=== PATIENT | female | born 1970 | race Caucasian/White ===

== ENCOUNTER → 2018-09-03 14:47 | Outpatient (CLI) | payer OTHER, SELFPAY ==
--- NOTE | 2018-09-03 | DI.MG.S_ITS ---
BILATERAL DIGITAL SCREENING MAMMOGRAM 3D/2D WITH CAD: 09/03/2018 CLINICAL: Routine screening. Family history of breast cancer. Comparison is made to exams dated: 08/23/2017 mammogram, 08/13/2016 mammogram, and 08/12/2015 mammogram - [facility]. There are scattered fibroglandular elements in both breasts. Current study was also evaluated with a Computer Aided Detection (CAD) system. No significant masses, calcifications, or other findings are seen in either breast. There has been no significant interval change. IMPRESSION: NEGATIVE There is no mammographic evidence of malignancy. A 1 year screening mammogram is recommended. This exam was interpreted at Station ID: [id number]. NOTE: For mammograms, a report in lay terms will be sent to the patient. Approximately 15% of breast malignancies will not be visualized mammographically. In the management of a palpable breast mass, a negative mammogram must not discourage biopsy of a clinically suspicious lesion. Electronically Signed By: Lauren betancourt/suyapa:09/03/2018 19:24:19 letter sent: Normal Exam ACR BI-RADS Category 1: Negative 3341F
== END ==
PROVIDERS: PCP Family Medicine; Visit Provider Family Medicine
DX: Z12.31 Encounter for screening mammogram for malignant neoplasm of breast (principal); Z80.3 Family history of malignant neoplasm of breast
CPT/HCPCS: 77063; 77067

== ENCOUNTER → 2019-09-07 07:38 | Outpatient (CLI) | payer OTHER, SELFPAY ==
--- NOTE | 2019-09-07 | DI.MG.S_ITS ---
BILATERAL DIGITAL SCREENING MAMMOGRAM 3D/2D WITH CAD: 09/07/2019 CLINICAL: Routine screening. Family history of breast cancer. Comparison is made to exams dated: 09/03/2018 mammogram, 08/23/2017 mammogram, and 08/13/2016 mammogram - [facility]. There are scattered fibroglandular elements in both breasts. Current study was also evaluated with a Computer Aided Detection (CAD) system. No significant masses, calcifications, or other findings are seen in either breast. There has been no significant interval change. IMPRESSION: NEGATIVE There is no mammographic evidence of malignancy. A 1 year screening mammogram is recommended. This exam was interpreted at Station ID: [id number]. NOTE: For mammograms, a report in lay terms will be sent to the patient. Approximately 15% of breast malignancies will not be visualized mammographically. In the management of a palpable breast mass, a negative mammogram must not discourage biopsy of a clinically suspicious lesion. Electronically Signed By: Lauren betancourt/suyapa:09/07/2019 21:47:01 letter sent: Normal Exam ACR BI-RADS Category 1: Negative 3341F
== END ==
PROVIDERS: PCP Family Medicine; Referring Provider Family Medicine; Visit Provider Family Medicine
DX: Z12.31 Encounter for screening mammogram for malignant neoplasm of breast (principal); Z80.3 Family history of malignant neoplasm of breast
CPT/HCPCS: 77063; 77067

== ENCOUNTER → 2019-12-24 09:53 | Outpatient (CLI) | payer OTHER, SELFPAY ==
--- NOTE | 2019-12-24 09:55 | DI.US.S_ITS ---
PROCEDURE: US PELVIC COMPLETE INDICATIONS: MENORRHAGIA TECHNIQUE: Real-time scanning was performed of the pelvic organs, with image documentation. Additional endovaginal scanning was necessary due to incomplete visualization of the adnexal and endometrial structures by transabdominal scanning. COMPARISON: None. FINDINGS: Transabdominal scanning: Limited scanning through the kidneys shows no hydronephrosis. No pathologic free abdominal or pelvic fluid. Left upper pole cyst measuring 2.5 cm. Endovaginal scanning: Uterus: Uterus is normal in size at 10.7 x 5.3 x 6.2 cm. The endometrium measures 16 mm in combined thickness. Ovaries: Right ovary measures 4.0 x 2 point 2 x 2 0.4 cm. There is physiologic follicular change in the presumed hemorrhagic cyst measuring 1.5 x 1.3 x 1.3 cm. If clinically desired, this could be followup in 6 weeks to document resolution Left ovary surgically absent IMPRESSION: Presumed right ovarian hemorrhagic cyst Left renal cyst Dictated by: Cuco Dupont M.D. on 12/24/2019 at 13:26 Approved by: Cuco Dupont M.D. on 12/24/2019 at 13:31
== END ==
PROVIDERS: PCP Family Medicine; Referring Provider Obstetrics & Gynecology; Visit Provider Obstetrics & Gynecology
DX: N92.0 Excessive and frequent menstruation with regular cycle (principal); N28.1 Cyst of kidney, acquired; Z90.721 Acquired absence of ovaries, unilateral
CPT/HCPCS: 76830; 76856

== ENCOUNTER → 2020-04-08 09:21 | Outpatient (CLI) | payer OTHER, SELFPAY ==
[2020-04-10 18:28] LABS: COVID19 Sendout Not Detected (Not Detect)
== END ==
PROVIDERS: PCP Family Medicine; Visit Provider Nurse Practitioner
DX: Z11.59 Encounter for screening for other viral diseases (principal)
CPT/HCPCS: 87635

== ENCOUNTER 2020-04-11 08:39 | Inpatient (IN) | payer OTHER, SELFPAY ==
[2020-04-07 08:47] VITALS: BMI 40.3
[2020-04-11] VITALS (14 sets, daily range): BP systolic 136–192; BP diastolic 66–103; PULSE 48–83; RESP 12–25; TEMP 36.1–36.9; O2SAT 95–99; BMI 40.3; BMI 38.7
--- NOTE | 2020-04-11 | PATH_ITS ---
[facility] Accession Number: [id number] . 01 Material submitted: . UTERUS/TUBE/OVARY - UTERUS AND RIGHT TUBE AND RIGHT OVARY . 02 Diagnosis: Uterus With Right Fallopian Tube and Ovary, Supracervical Hysterectomy and Right Salpingo-oophorectomy: Proliferative endometrium with no diagnostic abnormality. Myometrium with no diagnostic abnormality. Right ovary with benign hemorrhagic corpus luteum cyst. Right fallopian tube with simple benign paratubal cysts and gross evidence of prior tubal ligation. No evidence of neoplasm. [facility] 04/13/2020 1048 Local . 02 Electronically signed: . Caesar Vogt MD, PhD, Pathologist NPI- [id number] . 01 Gross description: . Received in formalin, labeled uterus and right ovary and right fallopian tube, and consists of a 121-gram supracervically resected uterus with right ovary and fallopian tube. The specimen measures 8.0 cm from superior fundus to lower uterine segment by 6.0 cm from cornu to cornu by 5.5 cm from anterior to posterior. The serosa is cooley-pink and smooth. The specimen is bivalved to reveal a cooley-pink herringbone endocervical mucosa. The triangular endometrial cavity measures 4.0 x 2.8 cm and displays a cooley-pink glistening hemorrhagic endometrium measuring 0.1 cm in thickness. The myometrium is cooley-pink and trabeculated measuring 1.7 cm in thickness. The right ovary measures 4.0 x 2.0 x 2.0 cm and displays a cooley-pink cerebriform external surface. Sectioning reveals a 0.7 x 0.6 x 0.6 cm serous filled smooth walled cyst. The fallopian tube measures 6.5 cm in length by 0.7 cm in diameter. The serosa is pink-purple and smooth with a 0.5 x 0.5 x 0.5 cm paratubal cyst. There is evidence of previous ligation. Sectioning reveals a cooley mucosa and a lumen measuring 0.3 cm in diameter. Geek Squad Manager sections are submitted. . A1: anterior lower uterine segment. A2: posterior lower uterine segment. A3: anterior uterus, full-thickness sections. A4: posterior uterus, full-thickness sections. A5-A6: client care representative right ovary and cyst. A7-A9: client care representative fallopian tube, paratubal cyst and bisected fimbria. ([id number]) /MRV 04/12/2020 1308 Local . 02 Pathologist provided ICD-10: N92.0, N83.9, N83.10 . 02 CPT . 642115 Performed at: 01 [facility] [address] [id number] MD Ernesto Keys MD Phone: [phone] Performed at: 02 [facility] [id number] [place] [id number] MD Diandra Esparza MD Phone: [phone]
[2020-04-11] MEDS: LACTATED RINGERS 1,000 ML 100 ML IV ×4 (09:03→22:16)
[2020-04-11] MEDS: ACETAMINOPHEN 325 MG TABLET 975 MG PO (09:03)
--- NOTE | 2020-04-11 09:38 | PM.PREOP ---
Pre-operative Note COVID-19 COVID-19 status: Negative Result date/Date tested (Pos, Neg/Pending): 04/08/20 Interval Note History & Physical reviewed/Exam performed by Physician: Yes Changes to H&P: No H&P completed within 30 days and has changed as indicated here:: 03/29/20
[2020-04-11] MEDS: CEFAZOLIN 2 GM/100 ML FROZ.PIGGY IV (09:50)
--- NOTE | 2020-04-11 10:27 | SUR.OPER ---
Lithotomy on padded OR bed. [place] Pad Positioner under torso. Head on pillow, arms padded and tucked at sides. Legs secured in padded yellow fins stirrups.
[2020-04-11] MEDS: BUPIVACAINE 0.5% W/ EPI (PF) 30 ML VIAL INJ (11:24)
--- NOTE | 2020-04-11 12:17 | P.OP_ITS ---
Operative Date/Time/Diagnoses Date of procedure: 04/11/20 Time of procedure: 12:17 Post-op diagnosis: same Procedure & Clinicians Procedure: Procedures Operation Date: 04/11/20 09:45 Actual Procedures Side Surgeon p Diagnostic Laparoscopy converted to open Supracervical Hysterectomy with Right Salpingo-oophorectomy Natalie Park MD Indications: Menorrhagia Anemia Surgeon: Natalie Park Grease Machine Worker: Josephine Resendiz Anesthesia Type: General Operative Notes Findings: Twelve week size uterus Left tube and ovary previously removed Normal right tube Right ovary with small cysts Bladder to uterine adhesions Closure Type: primary Specimen(s): right tube & ovary and uterus Applied: catheter Estimated blood loss (mL): 100 Blood products transfused: none Procedure in detail: The patient was taken to the operating room where she was placed in the dorsal supine position. After adequate general endotracheal anesthesia was achieved, she was placed in the dorsal lithotomy position, and prepped and draped in the usual sterile fashion. A time-out was performed. A bivalve speculum was placed into the Vagina and the anterior lip of the cervix grasped with a single-tooth tenaculum. The cervical os was sequentially dilated until the Zumi uterine manipulator could pass easily into the endometrial cavity. The single-tooth tenaculum was removed from the anterior lip of the cervix. The bivalve speculum was removed from the vagina. Attention was then turned to the abdomen where 6 cc of 0.5% Marcaine with epinephrine were injected in the umbilical fold. A 5 mm incision was made. An attempt was made to place the Veress needle into the peritoneal cavity but was unsuccessful. The incision was extended and the fascia was grasped and entered sharply. The incision was extended bilaterally with the Wei scissors. The Everett trocar was placed into the peritoneal cavity and insufflation with 3.8 L CO2 was performed. Inspection with the camera revealed a large uterus and the visualization into the pelvis was not good. A decision was made to proceed with an open procedure. The instruments were removed from the abdomen. The CO2 was allowed to escape. A Pfannenstiel skin incision was made 2 finger breaths above the pubic symphysis and carried through to the underlying layer of fascia. The fascia was nicked in the midline and the incision extended bilaterally with the Wei scissors. The superior aspect of the fascial incision was grasped with the Nayeli clamps, elevated, and underlying rectus muscles dissected off sharply and bluntly. Attention was then turned to the inferior aspect of this incision which in a similar fashion was grasped, elevated, and the rectus muscles were dissected off sharply and bluntly. The rectus muscles were in the midline, the peritoneum was identified, grasped between 2 hemostats, and entered sharply with the Metzenbaum scissors. This incision was extended superiorly and inferiorly with good visualization of the bladder. The large Abraham retractor was placed into the incision. The bowel was packed away with moist lap sponges. The uterus was grasped with a 4 tooth tenaculum. The round ligament on the right side was grasped between 2 Josephine clamps, incised, and suture ligated with 0 Vicryl and tagged with a hemostat. This was repeated on the patient's left side. On the right side the peritoneum was entered sharply with the Metzenbaum scissors both anteriorly and posteriorly. The infundibulopelvic ligament on the right side was grasped between 2 Nayeli clamps, incised, free tied with 0 Vicryl, and then suture ligated with 0 Vicryl. Hemostasis was achieved. The uterine arteries were skeletonized bilaterally the bladder flap was created sharply with the Metzenbaum scissors from both sides, and the bladder flap was taken down off of the lower uterine segment and cervix. The uterine arteries were clamped, transected, and suture ligated with 0 Vicryl bilaterally. The Zumi uterine manipulator was removed from the uterus. A sponge stick was placed into the vagina. The uterus was amputated from the cervix using the cautery, and handed off for specimen. The endocervical canal was cauterized with the Bovie. The cervix was closed with simple interrupted sutures using 0 Vicryl. Hemostasis was achieved. The pelvis was copiously irrigated with warm normal saline. There was no bleeding noted. The Abraham and lap sponges were removed from the abdomen. The peritoneum was closed using 2 0 Vicryl in a running fashion. The fascia was closed using 0 Vicryl in a running fashion. The subcutaneous layer was copiously irrigated with warm normal saline. Two layers of 3 0 Vicryl sutures were placed to reapproximate the subcutaneous layer. The skin was closed with 4 0 Biosyn in a subcuticular fashion. Steri-Strips and an Aquacel dressing were placed. The umbilical incision was closed on the fascia with 0 Vicryl. The skin was closed with 4 0 Biosyn in a subcuticular fashion. Steri-Strips, 2 x 2, and op site were placed. The moistened sponge stick was removed from the vagina. Sponge, lap, and instrument counts were correct x2. The patient tolerated the procedure well, and was taken to PACU in stable con dition. Complications: none Post-operative Condition: stable Disposition: PACU Plan for aftercare: To Acute Care after Recovery
--- NOTE | 2020-04-11 12:19 | PC.NURSE ---
Day shift: Pt not on AC unit at this time (1220).
--- NOTE | 2020-04-11 12:48 | SUR.PHASEI ---
transferred patient to room 213 in stable condition.
--- NOTE | 2020-04-11 12:48 | PC.NURSE ---
Day shift: Pt on unit from PACU at approx 1248. Oriented to room and call light. BP elevated 167/103. Will continue to monitor. Pt stated that her BP at home is usually 130/85 juice. Estrada patent. Aqucel ove lower ABD is dry and intact with a very small amount of shadow drainage in the middle (approx size of 1/8 of a yossi). SCD's tolerated. Pt is A&Ox3. She stated she is tired.
--- NOTE | 2020-04-11 13:06 | PC.NURSE ---
Day shift: Dr Park contacted by phone in regards to elevated BP. Order placed for consult to hospitalist. Dr Madrid notified. Per Dr Park Pt's PCP deluna not have privileges at [facility].
[2020-04-11] MEDS: HYDROMORPHONE 1 MG INJ IV (13:26)
[2020-04-11] MEDS: ONDANSETRON 4 MG/2 ML INJ IV (14:06)
[2020-04-11 14:19] LABS: Add Manual Diff / Slide Review NO; Basophils Absolute Auto 0 /uL (0-100); Basophils Percent Auto 0.2 % (0-2); Eosinophils Absolute Auto 0 /uL (0-450); Hematocrit 37.7 % (36-46); Hemoglobin 12.6 g/dL (12.0-16.0); Lymphocytes Absolute Auto 600 /uL (1100-4500); Lymphocytes Percent Auto 3.7 % (25-40); Mean Corpuscular HGB Conc 33.5 % (30-36); Mean Corpuscular Hemoglobin 31.8 PG (26-34); Mean Corpuscular Volume 94.9 fL (80-100); Monocytes Absolute Auto 400 /uL (0-900); Monocytes Percent Auto 2.7 % (3-14); Neutrophils Absolute Auto 14600 /uL (1500-7000); Neutrophils Percent Auto 93.4 % (50-75); Platelet Count 287 X10^3/uL (150-400); Red Blood Cell Count 3.97 X10^6/uL (4.0-5.2); Red Cell Distribution Width 12.6 % (11.6-14.8); White Blood Cell Count 15.6 X10^3/uL (4.5-11.0)
[2020-04-11 14:30] LABS: BUN Creatinine Ratio 14.3 (6-22); Blood Urea Nitrogen 9 mg/dL (7-17); Calcium 8.5 mg/dL (8.4-10.2); Carbon Dioxide 23 mmol/L (22-32); Chloride 106 mmol/L (98-107); Estimated Glomerular Filt Rate > 60.0 mL/min (>60); Glucose 176 mg/dL (70-100); HEMOLYSIS < 15 (0-50); Potassium 4.3 mmol/L (3.4-5.1); Sodium 137 mmol/L (137-145)
--- NOTE | 2020-04-11 15:34 | PM.CN ---
History of Present Illness Consult details Date Patient Seen: 04/11/20 Chief complaint: OPB Reason for consult: Hypertension Requesting provider: Natalie Park Narrative: The patient is a 49-year-old female who is status post laparoscopic hysterectomy and oophorectomy. I was asked to see the patient in consultation for treatment of hypertension. Patient reports history of stroke. She apparently was hypertensive at the time of her stroke. She notes that her blood pressure somewhat elevated at home. She was to start hydrochlorothiazide for her blood pressure. But she admits not taking the hydrochlorothiazide. In addition to hypertension the patient hypothyroidism. I discussed with her the need for treatment of her blood pressure is she has been hypertensive throughout her hospital stay. She denies any shortness of breath or chest pain. She has no headache or blurred vision. She does report some nausea postoperatively. She has occasional lower extremity edema. She reports her residual deficit from her stroke was difficulty with fine motor control of her left hand. Patient was markedly hypertensive postoperatively. It has improved somewhat. Patient is agreeable to taking lisinopril which we discussed during the consultation. Meds Home Medications and Allergies Home Medications Medication Instructions Recorded Confirmed Type multivitamin 1 cap PO DAILY #0 08/07/12 04/07/20 History aspirin 81 mg tablet,delayed 81 mg PO DAILY 12/31/19 04/11/20 History release levothyroxine 100 mcg capsule 100 mcg PO DAILY #30 cap 03/03/20 04/11/20 Rx Allergies Allergy/AdvReac Type Severity Reaction Status Date / Time amoxicillin [AMOXICILLIN] Allergy Mild RASH Verified 04/11/20 08:50 Penicillins [PENICILLINS] Allergy Mild RASH Verified 04/11/20 08:50 Review of Systems Review of Systems ROS: Yes All systems reviewed with the patient and are negative except as otherwise documented Exam Vital Signs (past 8 hours): - 04/11/20 08:54 04/11/20 12:08 04/11/20 12:14 Temperature 97.8 F 98.2 F Pulse Rate 83 72 72 Respiratory Rate 18 16 13 Blood Pressure 192/82 H 146/88 H 154/87 H Pulse Oximetry 98 96 96 04/11/20 12:19 04/11/20 12:24 04/11/20 12:34 Temperature Pulse Rate 74 72 68 Respiratory Rate 25 H 16 12 Blood Pressure 155/95 H 166/92 H 170/94 H Pulse Oximetry 96 97 95 04/11/20 12:50 04/11/20 13:20 04/11/20 13:50 Temperature 96.9 F L 96.9 F L 97.0 F L Pulse Rate 60 60 60 Respiratory Rate 14 16 16 Blood Pressure 167/103 H 167/80 H 160/89 H Pulse Oximetry 96 96 96 04/11/20 14:50 04/11/20 15:05 Temperature 97.0 F L 97.0 F L Pulse Rate 65 56 L Respiratory Rate 16 16 Blood Pressure 141/74 H 146/83 H Pulse Oximetry 98 97 Oxygen Delivery Method Room Air Oxygen Flow Rate 0 Narrative Exam Narrative: Pleasant female lying in bed in no obvious distress HEENT: Normocephalic atraumatic, extraocular muscles are intact, oropharynx is clear, with moist mucous members, neck is supple without adenopathy Lungs: Clear to auscultation Cardiac exam regular rate and rhythm normal S1-S2 Abdomen: Soft nontender nondistended, patient with dressings in place, ice pack on her abdomen, she is hypoactive bowel tones, mildly tender to palpation Extremities: Trace edema Neuro exam: She has somewhat slow speech. Minimal weakness in the left upper extremity. Otherwise nonfocal exam Objective Labs Result Diagrams: 04/11/20 14:13 04/11/20 14:13 Labs: Laboratory Results - last 24 hr 04/11/20 04/11/20 14:13 14:13 WBC 15.6 H RBC 3.97 L Hgb 12.6 Hct 37.7 MCV 94.9 MCH 31.8 MCHC 33.5 RDW 12.6 Plt Count 287 Neut % (Auto) 93.4 H Lymph % (Auto) 3.7 L [place] % (Auto) 2.7 L Eos % (Auto) 0.0 L Baso % (Auto) 0.2 Neut # (Auto) 93893 H Lymph # (Auto) 600 L [place] # (Auto) 400 Eos # (Auto) 0 Baso # (Auto) 0 Sodium 137 Potassium 4.3 Chloride 106 Carbon Dioxide 23 BUN 9 Creatinine 0.63 Estimated GFR > 60.0 BUN/Creatinine Ratio 14.3 Glucose 176 H Calcium 8.5 Assessment & Plan Assessment & Plan narrative: 1. 49-year-old female status post hysterectomy and oophorectomy I am asked to evaluate for hypertension -patient has long history of hypertension -she has had a significant complication including prior stroke -she has been hypertensive throughout her hospital stay and likely has hypertension at home -will start the patient on lisinopril 10 mg per day. Will observe blood pressure over the next 2 days. May need to titrate this with a goal blood pressure of 120/80 2. 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 The hypothyroidism -continue thyroid medication 4. Status post hysterectomy -postop care per Dr. Park Thank you very much for this consultation
[2020-04-11] MEDS: METOCLOPRAMIDE 10 MG/2 ML INJ IV (15:36)
[2020-04-11] MEDS: KETOROLAC 30 MG/ML VIAL IV ×2 (15:47→22:13)
[2020-04-11] MEDS: lisinopriL 10 MG TABLET PO (16:32)
[2020-04-11] MEDS: SCOPOLAMINE 1 PATCH TOP (18:21)
[2020-04-11] MEDS: OXYCODONE/ACETAMINOPHEN 5/325 TABLET 1 TAB PO (19:35)
[2020-04-11] MEDS: DOCUSATE 250 MG CAPSULE PO (19:35)
--- NOTE | 2020-04-11 21:41 | PC.NURSE ---
Evening Shift Note- Patient alert and oriented and able to make needs known to staff. Patient pleasent, calm, and cooperative with care. PRN IV reglan given to c/o nausea. Patient reports no changes. Recieved new order from Dr. Park for a scopalamine patch. Patient reports positive results after patch applied. PRN percocet and scheduled toradol provided for pain. Dressing to lower abdominal surgical site c/d/i. Safety measures in place. Bed alarm activated. Patient agrees to call for assistance. Call raygoza and phone within reach. Will continue to monitor.
--- NOTE | 2020-04-11 23:37 | PC.NURSE ---
Addendum entered by Charlotte Sims R.N. 04/12/20 06:10: Catheter d'cd at 0600 as per MD order. Instructed in sx/prevention of UTI. Original Note: Patient is alert and oriented. Breath sounds diminished in right LL but CTA with RA sat of 98%. HRR but bradycardic in 50's. Denies nausea. BT hypoactive; denies flatus. Abdomen is soft and tender. Umbilical dressing intact with serosanguinous drainage but no leakage. Aquacel dressing to lower abdomen is intact with spot of drainage outlined on previous shift unchanged. Indwelling catheter is patent; urine is clear, yellow. Is able to move herself in bed. Gait not assessed as not out of bed at this time. Wearing bilateral calf SCD's. Fall risk score is moderate and bed alarm is activated. States pain is currently 2/10 and tolerable; is aware she is able to have more Percocet at any time; has ice pack to abdomen for comfort.
[2020-04-12] VITALS (7 sets, daily range): BP systolic 113–173; BP diastolic 54–78; PULSE 56–79; RESP 15–20; TEMP 36.5–37.4; O2SAT 98–100
[2020-04-12] MEDS: KETOROLAC 30 MG/ML VIAL IV ×2 (03:47→10:20)
[2020-04-12] MEDS: LEVOTHYROXINE 100 MCG TABLET PO (06:00)
[2020-04-12 07:19] LABS: Cholesterol 140 mg/dL (140-199); HDL Cholesterol 31 mg/dL (40-60); LDL Cholesterol Calculated 90 mg/dL (<100); Triglycerides 95 mg/dL (35-150)
[2020-04-12] MEDS: DOCUSATE 250 MG CAPSULE PO ×2 (08:34→20:16)
[2020-04-12] MEDS: OXYCODONE/ACETAMINOPHEN 5/325 TABLET 1 TAB PO ×3 (08:34→20:16)
[2020-04-12] MEDS: lisinopriL 10 MG TABLET PO (08:34)
[2020-04-12] MEDS: LACTATED RINGERS 1,000 ML 100 ML IV (08:34)
--- NOTE | 2020-04-12 10:07 | PC.NURSE ---
Patient given 1 percocet for complaints of pain 3/4. This has been helpful to her. Her schultz catheter was taken out and patient has voided. She had a small blood clot in the toilet but has not had any further with her second urination. The urine had small spots of blood in it, and her yoshi pad had a small amount of drainage. Patients blood pressure 144/58 and medications given. Patient has a lower incision with aquacel dressing that has a small amount of old drainage and her lap sites are wnl with small amount of dried drainage as well. She will most likely go home today, and is now on a general diet.
--- NOTE | 2020-04-12 10:29 | PM.EVENT ---
Event Note Date Patient Seen: 04/12/20 Event Note: Blood pressure improved on Lisinopril. Would discharge home on current dose. F/u with Dr. Rios as an outpatient.
--- NOTE | 2020-04-12 18:16 | PM.PNPO.1 ---
Subjective Subjective Date Patient Seen: 04/12/20 Time Patient Seen: 18:16 Interval history: Patient is a 49-year-old postop day # 1 status post a diagnostic laparoscopy which was converted to an open supracervical hysterectomy with right salpingo-oophorectomy Her catheter was removed this morning and she has been able to void without difficulty. She is passing flatus. Her pain is well controlled. She has tolerated a diet. No nausea or vomiting. She has been out of the bed to a chair. Exam Vital Signs (past 8 hours): - 04/12/20 11:00 04/12/20 15:51 Temperature 98.4 F 97.9 F Pulse Rate 79 75 Respiratory Rate 15 20 Blood Pressure 131/76 173/78 H Pulse Oximetry 99 100 Oxygen Delivery Method Room Air Oxygen Flow Rate 0 Narrative Exam Narrative: Generally: A well-developed, well-nourished female, sitting up in bed, no acute distress Lungs: Clear to auscultation bilaterally Cardiovascular: Regular rate and rhythm Abdomen: Soft, good bowel sounds in all 4 quadrants Incisions: The umbilical incision is clean dry and intact with an op site. The Pfannenstiel incision is clean dry and intact with an Aquacel dressing. Extremities: Negative Homans Objective Labs Result Diagrams: 04/11/20 14:13 04/11/20 14:13 Labs: Laboratory Results - last 24 hr 04/12/20 06:43 Triglycerides 95 Cholesterol 140 LDL Cholesterol, Calc 90 HDL Cholesterol 31 L Assessment & Plan Post-op Postoperative Procedures: Procedures Operation Date: 04/11/20 09:45 Actual Procedures Side Surgeon p Diagnostic Laparoscopy converted to open Supracervical Hysterectomy with Right Salpingo-oophorectomy Natalie Park MD Postoperative day: 1 Postoperative status: doing well Postoperative plan: routine post-op care Time Spent With Patient Time with patient: 15-24 minutes
[2020-04-13] MEDS: OXYCODONE/ACETAMINOPHEN 5/325 TABLET 1 TAB PO ×3 (00:30→11:40)
[2020-04-13 06:00] VITALS: BP 121/75; PULSE 69; RESP 16; TEMP 36.2; O2SAT 99
[2020-04-13] MEDS: LEVOTHYROXINE 100 MCG TABLET PO (06:05)
[2020-04-13 08:00] VITALS: BP 136/68; PULSE 56; RESP 15; TEMP 36.7; O2SAT 99
[2020-04-13] MEDS: DOCUSATE 250 MG CAPSULE PO (09:56)
[2020-04-13] MEDS: SODIUM CHLORIDE 0.9% FLUSH 10 ML IV (09:56)
[2020-04-13] MEDS: lisinopriL 10 MG TABLET PO (09:56)
--- NOTE | 2020-04-13 10:47 | PC.NURSE ---
Patients aquacel dressing is cdi, patient denies pain and will be discharging home today. She is independent in her room and will be given a percocet before she leaves with her . Patient is voiding without difficulty, or clots, her yoshi pad has been clear.
--- NOTE | 2020-04-13 18:02 | PM.DS.1 ---
History of Present Illness History of Present Illness Date Patient Seen: 04/13/20 Time Patient Seen: 07:45 Chief complaint: OPB Narrative: Patient is a 49 year 3 para 2 postop day # 2 status post laparoscopy converted to open supracervical hysterectomy with right salpingo-oophorectomy. 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 Due to the size of the uterus and poor visualization during laparoscopy, a decision was made to proceed with an open procedure. She underwent an abdominal supracervical hysterectomy with right salpingo-oophorectomy without complication. On postop day # 1, her Estrada catheter was removed and she was able to void without difficulty. She tolerated a diet on postop day # 1. She ambulated without assistance. Her pain was well controlled. She is discharged home on postop day # 2 Status at Discharge Cognitive/behavioral status at discharge: oriented Functional status at discharge: independent ambulation Overall status at discharge: patient is progressing back to baseline Time Spent with Patient Time spent: Less than 30 minutes Exam Vital Signs (past 8 hours): Oxygen Delivery Method Room Air Oxygen Flow Rate 0 Narrative Exam Narrative: Generally: Patient is sitting up in bed, no acute distress Lungs: Clear to auscultation bilaterally Cardiovascular: Regular rate and rhythm Abdomen: Soft, good bowel sounds Incisions: The umbilical incision is clean dry and intact with an op site. The Pfannenstiel incision is clean dry and intact with an Aquacel dressing. Extremities: Negative Homans Objective Labs Result Diagrams: 04/11/20 14:13 04/11/20 14:13 Discharge Assessment & Plan Assessment and Plan Assessment: 49-year-old 3 para 2 postop day # 2 status post open abdominal supracervical hysterectomy with right salpingo-oophorectomy, doing very well Plan of Treatment: Discharge to home Follow-up April 18, 2020 for Aquacel dressing removal Prescription for lisinopril, ibuprofen, Colace, and Percocet sent to the pharmacy Patient to call with fever, chills, redness or drainage around the incisions, or bleeding vaginally more than spotting to light She may remove the umbilical dressing after her for shower Discharge Plan Discharge Plan Patient Disposition: Home Discharge comment: Call with fever, chills, redness or drainage around incisions or bleeding vaginally more than spotty to light Restart baby asa in 1 week Discharge orders & Medications Prescriptions: New ibuprofen 600 mg tablet 600 mg PO Q6H PRN (Reason: pain) Qty: 30 RF: 2 oxycodone-acetaminophen [Percocet] 5-325 mg tablet 1 tab PO Q4-6H PRN (Reason: pain) Qty: 30 RF: 0 docusate sodium [Colace] 100 mg capsule 100 mg PO DAILY Qty: 20 RF: 0 lisinopril 10 mg tablet 10 mg PO DAILY Qty: 30 RF: 3 Continued multivitamin Capsule 1 cap PO DAILY Qty: 0 RF: 0 levothyroxine 100 mcg capsule 100 mcg PO DAILY Qty: 30 RF: 11 Discontinued aspirin 81 mg tablet,delayed release (DR/EC) 81 mg PO DAILY RF: 0 Follow up/Referrals: Natalie Pakr MD [Physician] - 04/18/20 1:00 pm (Your aquacel dressing will be removed at this visit.) Rashid Lizarraga DO [Primary Care Provider] - (Follow up elevated blood pressure. Please call Dr. Lizarraga's office to schedule your appointment.) Diet/Activity/Treatments Diet: Regular Activity: No heavy lifting Skin/Wound/Dressing Care Report to your healthcare provider any signs of infection, such as:: chills, fever, increased pain, unusual drainage and unusual redness Dressing: Do not remove dressing Visit Report/Discharge Packet Instructions: Essential Hypertension, DI for Hysterectomy, DI for Laparoscopy, DI for Prescription Opioid Use, Oxycodone/Acetaminophen (By mouth) Stand Alone Forms: Surgery Discharge Visit Report Forms: Patient Portal/API, Stroke Signs & Symptoms Discharge Data Primary Care Provider: Rashid Lizarraga Discharges patient from system. Discharge Date/Time: 04/13/20 11:30
== END 2020-04-13 11:30 | disposition home or self-care (01) | DRG 743 ==
LOC: OR 08:39 → AC 13:58
PROVIDERS: Internal Medicine; Admitting Provider Obstetrics & Gynecology; PCP Family Medicine; Referring Provider Family Medicine; Visit Provider Obstetrics & Gynecology
PROC: 0UT94ZL Resection of Uterus, Supracervical, Percutaneous Endoscopic Approach (ICD-10-PCS; principal; 2020-04-11 09:45)
DX: N92.0 Excessive and frequent menstruation with regular cycle (principal); I10 Essential (primary) hypertension; I69.334 Monoplegia of upper limb following cerebral infarction affecting left non-dominant side; E03.9 Hypothyroidism, unspecified; Z53.31 Laparoscopic surgical procedure converted to open procedure; Z91.14 Patient's other noncompliance with medication regimen
CPT/HCPCS: 36415; 58180; 80048; 80061; 85025; J0330; J0690; J1100; J1170; J1885; J2250; J2405; J2704; J2765; J3010

== ENCOUNTER → 2020-08-23 08:50 | Outpatient (CLI) | payer OTHER, SELFPAY ==
[2020-04-11 14:13] VITALS: BMI 38.7
[2020-08-23 10:54] LABS: Free T4, Direct Thyroxine 1.37 ng/dL (0.78-2.19)
[2020-08-23 11:08] LABS: Thyroid Stimulating Hormone 1.29 uIU/mL (0.47-4.68)
== END ==
PROVIDERS: Referring Provider Obstetrics & Gynecology; Visit Provider Obstetrics & Gynecology
DX: E03.9 Hypothyroidism, unspecified (principal)
CPT/HCPCS: 36415; 84439; 84443

== ENCOUNTER → 2020-09-09 08:09 | Outpatient (CLI) | payer OTHER, SELFPAY ==
[2020-04-11 14:13] VITALS: BMI 38.7
--- NOTE | 2020-09-09 | DI.MG.S_ITS ---
BILATERAL DIGITAL SCREENING MAMMOGRAM 3D/2D WITH CAD: 09/09/2020 CLINICAL: Routine screening. Family history of breast cancer. Comparison is made to exams dated: 09/07/2019 mammogram, 09/03/2018 mammogram, and 08/23/2017 mammogram - [facility]. There are scattered fibroglandular elements in both breasts. Current study was also evaluated with a Computer Aided Detection (CAD) system. No significant masses, calcifications, or other findings are seen in either breast. There has been no significant interval change. IMPRESSION: NEGATIVE There is no mammographic evidence of malignancy. A 1 year screening mammogram is recommended. This exam was interpreted at Station ID: [id number]. NOTE: For mammograms, a report in lay terms will be sent to the patient. Approximately 15% of breast malignancies will not be visualized mammographically. In the management of a palpable breast mass, a negative mammogram must not discourage biopsy of a clinically suspicious lesion. Electronically Signed By: Piyush abreu/suyapa:09/09/2020 09:04:14 letter sent: Normal Exam ACR BI-RADS Category 1: Negative 3341F
== END ==
PROVIDERS: Referring Provider Obstetrics & Gynecology; Visit Provider Obstetrics & Gynecology
DX: Z12.31 Encounter for screening mammogram for malignant neoplasm of breast (principal); Z80.3 Family history of malignant neoplasm of breast
CPT/HCPCS: 77063; 77067

== ENCOUNTER → 2020-09-27 07:51 | Outpatient (CLI) | payer OTHER, SELFPAY ==
[2020-04-11 14:13] VITALS: BMI 38.7
[2020-09-27 08:27] LABS: Add Manual Diff / Slide Review NO; Basophils Absolute Auto 100 /uL (0-100); Basophils Percent Auto 1.3 % (0-2); Eosinophils Absolute Auto 100 /uL (0-450); Eosinophils Percent Auto 3.1 % (2-4); Hematocrit 37.6 % (36-46); Hemoglobin 12.8 g/dL (12.0-16.0); Lymphocytes Absolute Auto 700 /uL (1100-4500); Mean Corpuscular Volume 94.1 fL (80-100); Monocytes Absolute Auto 400 /uL (0-900); Monocytes Percent Auto 10.7 % (3-14); Neutrophils Absolute Auto 2800 /uL (1500-7000); Neutrophils Percent Auto 66.9 % (50-75); Platelet Count 234 X10^3/uL (150-400); Red Blood Cell Count 3.99 X10^6/uL (4.0-5.2); Red Cell Distribution Width 12.8 % (11.6-14.8); White Blood Cell Count 4.2 X10^3/uL (4.5-11.0)
[2020-09-27 08:50] LABS: Alanine Aminotransferase 18 IU/L (<35); Albumin 4.1 g/dL (3.5-5.0); Albumin Globulin Ratio 1.3 (1.0-2.8); Alkaline Phosphatase 83 U/L (38-126); Aspartate Aminotransferase 28 IU/L (14-36); BUN Creatinine Ratio 17.5 (6-22); Bilirubin Total 0.3 mg/dL (0.2-1.3); Blood Urea Nitrogen 11 mg/dL (7-17); Calcium 9.2 mg/dL (8.4-10.2); Carbon Dioxide 26 mmol/L (22-32); Chloride 107 mmol/L (98-107); Cholesterol 185 mg/dL (140-199); Estimated Glomerular Filt Rate > 60.0 mL/min (>60); Globulin 3.1 g/dL (1.7-4.1); Glucose 106 mg/dL (70-100); HDL Cholesterol 40 mg/dL (40-60); HEMOLYSIS < 15 (0-50); LDL Cholesterol Calculated 118 mg/dL (<100); Potassium 4.4 mmol/L (3.4-5.1); Sodium 139 mmol/L (137-145); Total Protein 7.2 g/dL (6.3-8.2); Triglycerides 137 mg/dL (35-150)
== END ==
PROVIDERS: PCP Physician Assistant; Referring Provider Physician Assistant; Visit Provider Physician Assistant
DX: E03.9 Hypothyroidism, unspecified (principal); E78.2 Mixed hyperlipidemia
CPT/HCPCS: 36415; 80053; 80061; 84443; 85025

== ENCOUNTER 2021-06-29 07:58 | Emergency (ER) | payer OTHER, SELFPAY ==
[2020-04-11 14:13] VITALS: BMI 38.7
[2021-06-29] VITALS (10 sets, daily range): BP systolic 176–228; BP diastolic 74–109; PULSE 71–96; RESP 16–21; TEMP 36.6; O2SAT 87–99; BMI 41.2
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
[2021-06-29] MEDS: IBUPROFEN 400 MG TABLET PO (08:27)
[2021-06-29] MEDS: predniSONE 20 MG TABLET 40 MG PO (08:27)
[2021-06-29] MEDS: OXYCODONE/ACETAMINOPHEN 5/325 TABLET 1 TAB PO (08:28)
== END 2021-06-29 10:16 | disposition home or self-care (01) ==
PROVIDERS: Emergency Provider Emergency Medicine; PCP Physician Assistant
DX: M75.52 Bursitis of left shoulder (principal); Z87.891 Personal history of nicotine dependence
CPT/HCPCS: 99283

== ENCOUNTER → 2021-09-11 14:47 | Outpatient (CLI) | payer OTHER, SELFPAY ==
[2020-04-11 14:13] VITALS: BMI 38.7
--- NOTE | 2021-09-11 14:49 | DI.MG.S_ITS ---
BILATERAL DIGITAL SCREENING MAMMOGRAM 3D/2D WITH CAD: 09/11/2021 CLINICAL: Routine screening. Family history of breast cancer. Comparison is made to exams dated: 09/09/2020 mammogram, 09/07/2019 mammogram, and 09/03/2018 mammogram - [facility]. There are scattered fibroglandular elements in both breasts. Current study was also evaluated with a Computer Aided Detection (CAD) system. No significant masses, calcifications, or other findings are seen in either breast. There has been no significant interval change. IMPRESSION: NEGATIVE There is no mammographic evidence of malignancy. A 1 year screening mammogram is recommended. This exam was interpreted at Station ID: [id number]. NOTE: For mammograms, a report in lay terms will be sent to the patient. Approximately 15% of breast malignancies will not be visualized mammographically. In the management of a palpable breast mass, a negative mammogram must not discourage biopsy of a clinically suspicious lesion. Electronically Signed By: Bhavana workman/suyapa:09/11/2021 16:49:51 letter sent: Normal Exam ACR BI-RADS Category 1: Negative 3341F
== END ==
PROVIDERS: PCP Physician Assistant; Referring Provider Physician Assistant; Visit Provider Physician Assistant
DX: Z12.31 Encounter for screening mammogram for malignant neoplasm of breast (principal); Z80.3 Family history of malignant neoplasm of breast
CPT/HCPCS: 77063; 77067

== ENCOUNTER → 2021-11-17 09:46 | Outpatient (CLI) | payer OTHER, SELFPAY ==
[2020-04-11 14:13] VITALS: BMI 38.7
[2021-11-17 11:20] LABS: COVID19 -Nasal RAPID Negative (Negative)
== END ==
PROVIDERS: PCP Physician Assistant; Visit Provider Family Medicine Sleep Medicine
DX: Z20.822 Contact with and (suspected) exposure to COVID-19 (principal)
CPT/HCPCS: 87635; C9803

== ENCOUNTER 2021-11-20 13:37 | Day surgery (SDC) | payer OTHER, SELFPAY ==
[2020-04-11 14:13] VITALS: BMI 38.7
--- NOTE | 2021-11-20 | PATH_ITS ---
[facility] Accession Number: [id number] . 01 Material submitted: . PART A: colon - TRANSVERSE COLON POLYP PART B: colon - DESCENDING COLON POLYP . 02 Diagnosis: A. Transverse Colon Polyp: Tubular adenoma. . B. Descending Colon Polyp: Tubular adenoma. MRV 11/22/2021 0851 Local . 02 Electronically signed: . Sherron Shipley MD, Pathologist NPI- [id number] . 01 Gross description: . Part A: TRANSVERSE COLON POLYP: Received in formalin is 1 fragment(s) of cooley, soft tissue measuring 0.5 x 0.3 x 0.7 cm which is inked, bisected and submitted entirely in 1 cassette(s) Part B: DESCENDING COLON POLYP: Received in formalin is 1 fragment(s) of cooley, soft tissue measuring 0.5 x 0.3 x 0.5 cm which is inked, bisected and submitted entirely in 1 cassette(s) 1. /QBJ 11/21/2021 0919 Local . 02 Pathologist provided ICD-10: K63.5, Z80.0, R19.5 . 02 CPT . 885698, 995800 Specimen Comment: A courtesy copy of this report has been sent to [facility] Pathology Performed at: 01 [facility] [address], [place], [place] [id number] MD Ernesto Keys MD Phone: [phone] Performed at: [address] [facility] [address] [place], [place] [id number] MD Diandra Esparza MD Phone: [phone]
[2021-11-20 14:33] VITALS: BP 148/90; PULSE 92; RESP 16; TEMP 36.8; O2SAT 100; BMI 39.9
--- NOTE | 2021-11-20 14:54 | PM.HP.1 ---
History of Present Illness History of Present Illness Date Patient Seen: 11/20/21 Time Patient Seen: 14:54 Chief complaint: SDC Narrative: Family history of colon cancer in a single grandparent. Positive Cologuard test recently. Patient History Medical History Ankle pain Anxiety Depression History of CVA (cerebrovascular accident) (2011) HLD (hyperlipidemia) HTN (hypertension) Migraine Surgical History H/O: hysterectomy (~2019) History of bilateral salpingo-oophorectomy (BSO) Hx of oophorectomy (2005) Hx of tubal ligation (1995) Status post tubal ligation Family & Social History Family History Brother Age: 48 Heart attack Father Age: 71 Hypertension High cholesterol Social History: household members spouse,children Tobacco & Substance use: Smoking Status Former smoker alcohol intake current alcohol intake frequency holiday/special occasion Substance Use Type does not use Meds Home Medications and Allergies Home Medications Medication Instructions Recorded Confirmed Type multivitamin 1 cap PO DAILY #0 08/07/12 11/20/21 History ibuprofen 600 mg tablet 600 mg PO Q6H PRN #30 tab 04/13/20 11/20/21 Rx levothyroxine 100 mcg tablet See Rx Instructions .ROUTE 01/13/21 11/20/21 Rx .COMPLEX #30 tablet telmisartan 80 mg tablet 80 mg PO DAILY 11/20/21 11/20/21 History Allergies Allergy/AdvReac Type Severity Reaction Status Date / Time amoxicillin [AMOXICILLIN] Allergy Mild RASH Verified 11/20/21 14:28 Penicillins [PENICILLINS] Allergy Mild RASH Verified 11/20/21 14:28 Review of Systems Review of Systems ROS: Yes All systems reviewed with the patient and are negative except as otherwise documented Exam Const General: cooperative and comfortable Nutritional Appearance: overweight Orientation: alert HENAZ Head: normocephalic Ears: external ears normal Nose: external nose normal Face and sinus: normal facial exam Mouth: oral mucosae normal Eyes General: appearance normal, both eyes and all related structures Neck Neck: normal visual inspection Chest Chest: normal inspection of the chest Resp Effort & Inspection: normal respiratory effort Cardio Rate: regular rate GI Inspection: normal to inspection Skin General: no rashes or lesions noted and No jaundice Neuro General: patient alert and moves all extremities Cognition: normal cognition Speech: speech normal Extrem General: no pedal edema Psych Appearance: grossly normal Assessment & Plan Assessment & Plan narrative: 51-year-old female with a positive Cologuard. Colonoscopy is planned for today. Time Spent With Patient Critical Care time: I spent a total of [] minutes of critical care time on this patient's care today; this time is exclusive of procedural time.
--- NOTE | 2021-11-20 14:56 | PM.PREOP ---
Pre-operative Note COVID-19 COVID-19 status: Negative Result date/Date tested (Pos, Neg/Pending): 11/17/21 Criteria for continued procedure: Possibility delay results in more complex future surgery or treatment Interval Note History & Physical reviewed/Exam performed by Physician: Yes Changes to H&P: No ASA Class (for procedural sedation): II
--- NOTE | 2021-11-20 17:33 | PM.OP.COLON ---
Operative Date/Time/Diagnoses Date of procedure: 11/20/21 Time of procedure: 17:34 Pre-op diagnosis: Positive Cologuard Post-op diagnosis: same Procedure & Clinicians Study performed: Colonoscopy with hot snare polypectomy Same procedure as scheduled: Yes Indications: Positive Cologuard Surgeon: Nic Kendall Procedure Notes SCOAP/Timeout: Done Procedure in detail: After the risks and benefits were explained, written and verbal informed consent was obtained. The patient was brought into the procedure room and placed into the left lateral decubitus position. Please see nurse civil project engineer notes for sedation details. Digital rectal examination was accomplished. The scope was introduced into the patient and advanced under direct visualization to the cecum as identified by the appendiceal orifice and ileocecal valve. The scope was slowly withdrawn to carefully examine the mucosa for any defects or lesions. Comprehensive imaging was accomplished throughout the rectum including the dentate line. The colon was decompressed, the scope was then removed from the patient who tolerated the procedure well. Bowel prep adequate Pediatric colonoscope Scope withdrawal time: 17 minutes Sedation minutes: 34 Complications: none Impression: There was a pedunculated polyp in the transverse colon perhaps 8 mm in greatest dimension removed with hot snare. A 2nd 8-9 mm pedunculated polyp in the distal descending colon was also removed with hot snare. Otherwise no significant mucosal pathology was appreciated throughout. Grade 2 to 3 hemorrhoids were noted on direct views Endoscopic diagnosis 1. Grade 2-3 hemorrhoids 2. Colon polyps Post-procedure Plan for aftercare: 1. Await histopathology. 2. Surveillance colonoscopy will be contingent on pathology findings. Disposition: PACU
[2021-11-20 17:37] VITALS: BP 107/51; PULSE 77; RESP 16; TEMP 36.6; O2SAT 99
[2021-11-20 17:42] VITALS: BP 112/65; PULSE 76; RESP 16; O2SAT 99
--- NOTE | 2021-11-20 17:43 | SUR.PHASEI ---
IV STARTED IN LEFT THUMB PER ANESTHESIA PRIOR TO PROCEDURE.
[2021-11-20 17:47] VITALS: BP 119/80; PULSE 84; RESP 18; O2SAT 100
[2021-11-20 17:52] VITALS: BP 130/77; PULSE 87; RESP 16; O2SAT 100
--- NOTE | 2021-11-20 17:57 | SUR.PHASEII ---
700 CC NS INFUSED PER ANESTHESIA START. LEFT THUMB IV DC'D WITHOUT S/SON INFILTRATION, INTACT.
[2021-11-20 18:10] VITALS: BP 128/80; PULSE 87; RESP 16; O2SAT 100
== END 2021-11-20 18:10 | disposition home or self-care (01) ==
PROVIDERS: PCP Physician Assistant; Referring Provider Internal Medicine Gastroenterology; Visit Provider Internal Medicine Gastroenterology
PROC: 0DJD8ZZ Inspection of Lower Intestinal Tract, Via Natural or Artificial Opening Endoscopic (ICD-10-PCS; CPT 45378; principal; 2021-11-20 15:00)
DX: R19.5 Other fecal abnormalities (principal); K64.2 Third degree hemorrhoids; D12.3 Benign neoplasm of transverse colon; D12.4 Benign neoplasm of descending colon
CPT/HCPCS: 45385; J2704

== ENCOUNTER → 2022-09-13 07:59 | Outpatient (CLI) | payer OTHER, SELFPAY ==
[2020-04-11 14:13] VITALS: BMI 38.7
--- NOTE | 2022-09-13 | DI.MG.S_ITS ---
BILATERAL DIGITAL SCREENING MAMMOGRAM 3D/2D WITH CAD: 09/13/2022 CLINICAL: Routine screening. Family history of breast cancer. Comparison is made to exams dated: 09/11/2021 mammogram, 09/09/2020 mammogram, and 09/07/2019 mammogram - [facility]. There are scattered areas of fibroglandular density in both breasts (category b / 25%-50% glandular tissue). Current study was also evaluated with a Computer Aided Detection (CAD) system. No significant masses, calcifications, or other findings are seen in either breast. There has been no significant interval change. IMPRESSION: NEGATIVE There is no mammographic evidence of malignancy. A 1 year screening mammogram is recommended. Based on the Tyrer Cuzick model (a risk assessment model) the patient's lifetime risk is 5.2% and her 10 year risk is 1.3%. According to the ACR, ACS, and NCCN guidelines, an annual breast MRI exam along with mammogram is recommended if the patient's lifetime risk is 20% or greater. This exam was interpreted at Station ID: [id number]. NOTE: For mammograms, a report in lay terms will be sent to the patient. Approximately 15% of breast malignancies will not be visualized mammographically. In the management of a palpable breast mass, a negative mammogram must not discourage biopsy of a clinically suspicious lesion. Electronically Signed By: Elio Silva M.D., jr/suyapa:09/13/2022 14:48:03 letter sent: Normal Exam ACR BI-RADS Category 1: Negative 3341F
== END ==
PROVIDERS: PCP Family Medicine; Referring Provider Family Medicine; Visit Provider Family Medicine
DX: Z12.31 Encounter for screening mammogram for malignant neoplasm of breast (principal); Z80.3 Family history of malignant neoplasm of breast
CPT/HCPCS: 77063; 77067

== ENCOUNTER → 2022-12-18 07:07 | Outpatient (CLI) | payer OTHER, SELFPAY ==
[2020-04-11 14:13] VITALS: BMI 38.7
[2022-12-18 08:05] LABS: Hematocrit 38.3 % (36-46); Hemoglobin 12.9 g/dL (12.0-16.0); Mean Corpuscular HGB Conc 33.8 % (30-36); Mean Corpuscular Hemoglobin 32.4 PG (26-34); Mean Corpuscular Volume 95.8 fL (80-100); Platelet Count 229 X10^3/uL (150-400); Red Blood Cell Count 3.99 X10^6/uL (4.0-5.2); Red Cell Distribution Width 13.3 % (11.6-14.8); White Blood Cell Count 3.8 X10^3/uL (4.5-11.0)
[2022-12-18 08:50] LABS: Vitamin D 25 Hydroxy (D3) 54.9 ng/mL (30.0-100.0)
[2022-12-18 09:10] LABS: TSH w/ Reflex to FT4 1.97 uIU/mL (0.47-4.68)
[2022-12-18 13:01] LABS: Alanine Aminotransferase 25 IU/L (<35); Albumin 4.4 g/dL (3.5-5.0); Albumin Globulin Ratio 1.2 (1.0-2.8); Alkaline Phosphatase 84 U/L (38-126); Aspartate Aminotransferase 29 IU/L (14-36); BUN Creatinine Ratio 19.7 (6-22); Bilirubin Total 0.6 mg/dL (0.2-1.3); Blood Urea Nitrogen 13 mg/dL (7-17); Calcium 9.4 mg/dL (8.4-10.2); Carbon Dioxide 24 mmol/L (22-32); Chloride 107 mmol/L (98-107); Cholesterol 221 mg/dL (140-199); Estimated Glomerular Filt Rate > 60 mL/min (>60); Globulin 3.6 g/dL (1.7-4.1); Glucose 101 mg/dL (70-100); HDL Cholesterol 41 mg/dL (40-60); HEMOLYSIS < 15 (0-50); LDL Cholesterol Calculated 153 mg/dL (<100); Potassium 4.2 mmol/L (3.4-5.1); Sodium 140 mmol/L (137-145); Triglycerides 137 mg/dL (35-150)
[2022-12-18 13:07] LABS: High Sensitivity CRP - Cardiac 1.7 mg/L (1.0-3.0)
[2022-12-19 05:44] LABS: x Labcorp Estim. Avg Glu (eAG) 114 mg/dL (.); x Labcorp Hemoglobin A1c 5.6 % (4.8-5.6)
== END ==
PROVIDERS: PCP Family Medicine; Referring Provider Family Medicine; Visit Provider Family Medicine
DX: E03.9 Hypothyroidism, unspecified (principal); E55.9 Vitamin D deficiency, unspecified; I10 Essential (primary) hypertension; R73.9 Hyperglycemia, unspecified; Z86.73 Personal history of transient ischemic attack (TIA), and cerebral infarction without residual deficits
CPT/HCPCS: 36415; 80053; 80061; 82306; 83036; 84443; 85027; 86140

== ENCOUNTER → 2023-04-12 13:27 | Outpatient (CLI) | payer OTHER, SELFPAY ==
[2020-04-11 14:13] VITALS: BMI 38.7
== END ==
PROVIDERS: PCP Family Medicine; Visit Provider Physician Assistant
DX: R30.0 Dysuria (principal); N89.8 Other specified noninflammatory disorders of vagina
CPT/HCPCS: 87086; 87210

== ENCOUNTER → 2023-04-29 07:41 | Outpatient (CLI) | payer OTHER, SELFPAY ==
[2020-04-11 14:13] VITALS: BMI 38.7
[2023-04-29 08:26] LABS: Cholesterol 212 mg/dL (140-199); HDL Cholesterol 41 mg/dL (40-60); LDL Cholesterol Calculated 141 mg/dL (<100); Triglycerides 149 mg/dL (35-150)
== END ==
PROVIDERS: PCP Family Medicine; Referring Provider Family Medicine; Visit Provider Family Medicine
DX: E78.5 Hyperlipidemia, unspecified (principal)
CPT/HCPCS: 36415; 80061

== ENCOUNTER → 2023-09-16 07:27 | Outpatient (CLI) | payer OTHER, SELFPAY ==
[2020-04-11 14:13] VITALS: BMI 38.7
[2023-09-16 08:22] LABS: Hematocrit 37.8 % (36-46); Hemoglobin 12.9 g/dL (12.0-16.0); Mean Corpuscular Hemoglobin 31.7 PG (26-34); Mean Corpuscular Volume 93.1 fL (80-100); Platelet Count 251 X10^3/uL (150-400); Red Blood Cell Count 4.06 X10^6/uL (4.0-5.2); White Blood Cell Count 4.6 X10^3/uL (4.5-11.0)
--- NOTE | 2023-09-16 08:24 | DI.MG.S_ITS ---
BILATERAL DIGITAL SCREENING MAMMOGRAM 3D/2D WITH CAD: 09/16/2023 CLINICAL: Routine screening. Family history of breast cancer. Comparison is made to exams dated: 09/13/2022 mammogram, 09/11/2021 mammogram, and 09/09/2020 mammogram - [facility]. There are scattered areas of fibroglandular density in both breasts (category b / 25%-50% glandular tissue). Current study was also evaluated with a Computer Aided Detection (CAD) system. No significant masses, calcifications, or other findings are seen in either breast. There has been no significant interval change. IMPRESSION: NEGATIVE There is no mammographic evidence of malignancy. A 1 year screening mammogram is recommended. Based on the Tyrer Cuzick model (a risk assessment model) the patient's lifetime risk is 5.2% and her 10 year risk is 1.3%. According to the ACR, ACS, and NCCN guidelines, an annual breast MRI exam along with mammogram is recommended if the patient's lifetime risk is 20% or greater. This exam was interpreted at Station ID: [id number]. NOTE: For mammograms, a report in lay terms will be sent to the patient. Approximately 15% of breast malignancies will not be visualized mammographically. In the management of a palpable breast mass, a negative mammogram must not discourage biopsy of a clinically suspicious lesion. Electronically Signed By: Bhavana workman/suyapa:09/16/2023 09:37:28 letter sent: Normal Exam ACR BI-RADS Category 1: Negative 3341F
[2023-09-16 09:06] LABS: High Sensitivity CRP - Cardiac 2.9 mg/L (1.0-3.0)
[2023-09-16 09:19] LABS: TSH w/ Reflex to FT4 1.66 uIU/mL (0.47-4.68)
[2023-09-16 12:04] LABS: Alanine Aminotransferase 19 IU/L (<35); Albumin 4.3 g/dL (3.5-5.0); Albumin Globulin Ratio 1.1 (1.0-2.8); Alkaline Phosphatase 75 U/L (38-126); Aspartate Aminotransferase 32 IU/L (14-36); BUN Creatinine Ratio 17.7 (6-22); Bilirubin Total 0.8 mg/dL (0.2-1.3); Blood Urea Nitrogen 11 mg/dL (7-17); Calcium 9.6 mg/dL (8.4-10.2); Carbon Dioxide 17 mmol/L (22-32); Chloride 114 mmol/L (98-107); Cholesterol 217 mg/dL (140-199); Estimated Glomerular Filt Rate > 60 mL/min (>60); Glucose 112 mg/dL (70-100); HDL Cholesterol 43 mg/dL (40-60); HEMOLYSIS 26 (0-50); LDL Cholesterol Calculated 151 mg/dL (<100); Potassium 4.5 mmol/L (3.4-5.1); Sodium 140 mmol/L (137-145); Total Protein 8.3 g/dL (6.3-8.2); Triglycerides 115 mg/dL (35-150)
[2023-09-17 11:53] LABS: Hemoglobin A1C% w Est Avg Glu 5.3 % (4.0-6.0)
== END ==
PROVIDERS: PCP Family Medicine; Referring Provider Family Medicine; Visit Provider Family Medicine
DX: Z12.31 Encounter for screening mammogram for malignant neoplasm of breast (principal); Z80.3 Family history of malignant neoplasm of breast; R92.323 Mammographic fibroglandular density, bilateral breasts; E78.00 Pure hypercholesterolemia, unspecified; E03.9 Hypothyroidism, unspecified; R73.9 Hyperglycemia, unspecified; I10 Essential (primary) hypertension
CPT/HCPCS: 36415; 77063; 77067; 80053; 80061; 83036; 84443; 85027; 86140

== ENCOUNTER → 2023-09-24 09:09 | Outpatient (CLI) | payer OTHER, SELFPAY ==
[2020-04-11 14:13] VITALS: BMI 38.7
[2023-09-24 10:10] LABS: Creatinine Urine Random 58.1 mg/dL
[2023-09-24 10:14] LABS: Microalbumin Urine Random < 0.6 mg/dL (0-1.6)
== END ==
PROVIDERS: PCP Family Medicine; Referring Provider Family Medicine; Visit Provider Family Medicine
DX: I10 Essential (primary) hypertension (principal)
CPT/HCPCS: 82043; 82570

== ENCOUNTER → 2023-11-30 08:35 | Outpatient (CLI) | payer OTHER, SELFPAY ==
[2020-04-11 14:13] VITALS: BMI 38.7
--- NOTE | 2023-11-30 08:37 | DI.RAD.S_ITS ---
PROCEDURE: XR WRIST LT MIN 3V INDICATIONS: Left wrist pain TECHNIQUE: Four views of the wrist were acquired. COMPARISON: None. FINDINGS: Bones: No fractures or dislocations. No suspicious bony lesions. Soft tissues: No suspicious soft tissue calcifications. IMPRESSION: No acute bony abnormality. Dictated by: Jatin Silva M.D. on 11/30/2023 at 8:22 Approved by: Jatin Silva M.D. on 11/30/2023 at 8:22
== END ==
LOC: RAD 08:36
PROVIDERS: PCP Family Medicine; Referring Provider Nurse Practitioner Family; Visit Provider Nurse Practitioner Family
DX: M25.532 Pain in left wrist (principal)
CPT/HCPCS: 73110

== ENCOUNTER → 2024-04-08 10:09 | Outpatient (CLI) | payer OTHER, SELFPAY ==
[2020-04-11 14:13] VITALS: BMI 38.7
[2024-04-08 12:38] LABS: TSH w/ Reflex to FT4 4.49 uIU/mL (0.47-4.68)
[2024-04-08 19:58] LABS: Rheumatoid Factor 22.9 IU/mL (<12.0)
[2024-04-09 17:39] LABS: SS A Ro Sjogrens Antibody > 8.0 AI (0.0-0.9); SS B La Sjogrens Antibody > 8.0 AI (0.0-0.9)
[2024-04-13 18:09] LABS: ANA Screen, IFA Positive (.); Speckled Pattern >1:1280 (.)
== END ==
PROVIDERS: PCP Family Medicine; Referring Provider Family Medicine; Visit Provider Family Medicine
DX: M35.9 Systemic involvement of connective tissue, unspecified (principal)
CPT/HCPCS: 36415; 84443; 86038; 86235; 86430

== ENCOUNTER → 2024-04-28 13:34 | Outpatient (CLI) | payer OTHER, SELFPAY ==
[2020-04-11 14:13] VITALS: BMI 38.7
[2024-04-28 14:59] LABS: C-Reactive Protein Quant < 0.5 mg/dL (<1.0)
[2024-04-28 15:23] LABS: Erythrocyte Sedimentation Rate 36 MM/HR (0-20)
[2024-04-29 04:09] LABS: Complement C3 123 mg/dL (82-167)
[2024-04-29 17:36] LABS: CCP Antibodies IgG/IgA 121 units (0-19)
== END ==
LOC: LAB 13:35
PROVIDERS: PCP Family Medicine; Referring Provider Internal Medicine Rheumatology; Visit Provider Internal Medicine Rheumatology
DX: M35.01 Sjogren syndrome with keratoconjunctivitis (principal); Z79.899 Other long term (current) drug therapy
CPT/HCPCS: 36415; 84155; 84165; 85651; 86140; 86160; 86162; 86200

== ENCOUNTER → 2024-09-26 08:10 | Outpatient (CLI) | payer OTHER, SELFPAY ==
[2020-04-11 14:13] VITALS: BMI 38.7
--- NOTE | 2024-09-26 08:11 | DI.MG.S_ITS ---
MM screening mammo BI: 09/26/2024. BI-RADS: 1 CLINICAL: 54-year old female for bilateral screening mammogram. Tyrer-Cuzick lifetime risk of 5.6%. No personal or first-degree family history of breast cancer. Current reported family history of breast cancer: paternal aunt. PRIOR EXAMS 09/16/2023, 09/13/2022, 09/11/2021, 09/09/2020, 09/07/2019, 09/03/2018, 08/23/2017, 08/13/2016, 08/12/2015, 01/26/2015. MAMMOGRAPHY TECHNIQUE: 2D and 3D (tomosynthesis) digital mammographic views obtained, with additional images as needed for full coverage. Current study was also evaluated with a Computer Aided Detection (CAD) system. DENSITY A. The breasts are almost entirely fatty. MAMMOGRAPHY FINDINGS Bilateral: No suspicious mass, asymmetry, microcalcification, or other abnormality seen. No significant change from comparison. IMPRESSION: * No evidence of malignancy. RECOMMENDATIONS Bilateral * Annual screening mammography. OVERALL ASSESSMENT CATEGORY BI-RADS-1: Negative. The [employer] recommends annual screening mammography beginning at age 40 for women with average risk of breast cancer. ELECTRONICALLY SIGNED: Lauren Hicks M.D. on 09/28/2024 at 11:53:17 AM PT Interpreting Station ID: [id number]
== END ==
PROVIDERS: PCP Family Medicine; Referring Provider Family Medicine; Visit Provider Family Medicine
DX: Z12.31 Encounter for screening mammogram for malignant neoplasm of breast (principal); Z80.3 Family history of malignant neoplasm of breast; R92.313 Mammographic fatty tissue density, bilateral breasts
CPT/HCPCS: 77063; 77067

== ENCOUNTER → 2025-02-01 11:50 | Outpatient (CLI) | payer OTHER, SELFPAY ==
[2020-04-11 14:13] VITALS: BMI 38.7
[2025-02-01 13:21] LABS: Add Manual Diff / Slide Review NO; Hematocrit 38.8 % (36-46); Hemoglobin 13.4 g/dL (12.0-16.0); Lymphocytes Absolute Auto 800 /uL (1100-4500); Mean Corpuscular HGB Conc 34.5 % (30-36); Mean Corpuscular Hemoglobin 32.7 PG (26-34); Mean Corpuscular Volume 94.9 fL (80-100); Platelet Count 248 X10^3/uL (150-400)
[2025-02-01 13:51] LABS: Alanine Aminotransferase 19 IU/L (<35); Albumin 4.6 g/dL (3.5-5.0); Albumin Globulin Ratio 1.5 (1.0-2.8); Alkaline Phosphatase 81 U/L (38-126); Blood Urea Nitrogen 12 mg/dL (7-17); Calcium 9.6 mg/dL (8.4-10.2); Carbon Dioxide 25 mmol/L (22-32); Chloride 106 mmol/L (98-107); Estimated Glomerular Filt Rate > 60 mL/min (>60); Globulin 3.1 g/dL (1.7-4.1); Glucose 112 mg/dL (70-99); HEMOLYSIS < 15 (0-50); Potassium 4.4 mmol/L (3.4-5.1); Sodium 140 mmol/L (137-145); Total Protein 7.7 g/dL (6.3-8.2)
== END ==
PROVIDERS: PCP Family Medicine; Referring Provider Internal Medicine Rheumatology; Visit Provider Internal Medicine Rheumatology
DX: M35.1 Other overlap syndromes (principal); Z79.899 Other long term (current) drug therapy
CPT/HCPCS: 36415; 80053; 84155; 84165; 85025; 85651; 86140

== ENCOUNTER → 2025-06-03 12:27 | Outpatient (CLI) | payer OTHER, SELFPAY ==
[2020-04-11 14:13] VITALS: BMI 38.7
[2025-06-03 13:18] LABS: Add Manual Diff / Slide Review NO; Hematocrit 40.5 % (36-46); Hemoglobin 13.9 g/dL (12.0-16.0); Lymphocytes Absolute Auto 700 /uL (1100-4500); Mean Corpuscular HGB Conc 34.2 % (30-36); Mean Corpuscular Hemoglobin 32.2 PG (26-34); Mean Corpuscular Volume 94.2 fL (80-100); Platelet Count 261 X10^3/uL (150-400)
[2025-06-03 13:28] LABS: Alanine Aminotransferase 20 IU/L (<35); Albumin 4.7 g/dL (3.5-5.0); Albumin Globulin Ratio 1.4 (1.0-2.8); Alkaline Phosphatase 74 U/L (38-126); Blood Urea Nitrogen 19 mg/dL (7-17); Calcium 9.8 mg/dL (8.4-10.2); Carbon Dioxide 22 mmol/L (22-32); Chloride 107 mmol/L (98-107); Estimated Glomerular Filt Rate > 60 mL/min (>60); Globulin 3.3 g/dL (1.7-4.1); Glucose 99 mg/dL (70-99); HEMOLYSIS 17 (0-50); Potassium 4.4 mmol/L (3.4-5.1); Sodium 140 mmol/L (137-145); Total Protein 8.0 g/dL (6.3-8.2)
== END ==
PROVIDERS: PCP Family Medicine; Referring Provider Internal Medicine Rheumatology; Visit Provider Internal Medicine Rheumatology
DX: M05.79 Rheumatoid arthritis with rheumatoid factor of multiple sites without organ or systems involvement (principal); M35.00 Sjogren syndrome, unspecified; Z79.899 Other long term (current) drug therapy
CPT/HCPCS: 36415; 80053; 82784; 84155; 84165; 85025